=== PATIENT | male | born 1950 | race Caucasian/White ===

== ENCOUNTER 2019-08-16 17:35 | Inpatient (IN) ==
[2019-08-16] MEDS ORDERED: *HR* FentaNYL (PF) 100 MCG/2 ML VIAL IVP ONE (19:55)
[2019-08-16] MEDS ORDERED: *HR* OxyCODONE/APAP 5/325 TABLET PO ONE (20:11)
[2019-08-16 21:01] LABS: Basophils # 0.1 K/mcL (0.0-0.2); Basophils % 0.7 %; Eosinophils # 0.4 K/mcL (0.0-0.6); Eosinophils % 4.1 %; Hematocrit 42.4 % (37.5-50.1); Hemoglobin 14.4 g/dL (12.9-16.9); Immature Granulocytes % 0.4 % (0-4); Lymphocytes # 1.1 K/mcL (0.6-4.6); Lymphocytes % 10.3 %; Mean Corpuscular Hemoglobin 32.6 pg (28.0-33.3); Mean Corpuscular Volume 95.9 fL (83.0-100.0); Mean Platelet Volume 10.8 fL (9.4-12.4); Monocytes % 10.2 %; Neutrophils # 7.6 K/mcL (1.6-8.9); Platelet Count 154 K/mcL (140-400); Red Blood Count 4.42 M/mcL (4.19-5.50); Red Cell Distribution Width 13.1 % (11.5-14.5); Segmented Neutrophils % 74.3 %; White Blood Count 10.2 K/mcL (4.3-11.1)
[2019-08-16 21:15] LABS: INR 1.1
[2019-08-16 21:18] LABS: Activated Partial Thrombo Time 31.5 Seconds (26.0-36.0)
[2019-08-16 21:22] LABS: BUN/Creatinine Ratio 13 (6-26); Blood Urea Nitrogen 10 mg/dL (8-23); Calcium 9.1 mg/dL (8.6-10.3); Carbon Dioxide 27 mEq/L (23-29); Chloride 99 mEq/L (98-107); Glucose 164 mg/dL (70-105); Osmolality,Calculated 283 (280-300); Potassium 4.1 mEq/L (3.5-5.1); Sodium 135 mEq/L (136-145); eGFR For African Americans > 60 (> 60); eGFR For Non-African Americans > 60 (> 60)
[2019-08-16] MEDS ORDERED: *HR* LORazepam 2 MG/ML VIAL IVP PRN ×3 (23:43)
[2019-08-16] MEDS ORDERED: *HR* Promethazine 25 MG/ML VIAL IVP PRN (23:43)
[2019-08-16] MEDS ORDERED: traMADol 50 MG TABLET PO PRN (23:50)
[2019-08-16] MEDS ORDERED: Acetaminophen 325 MG TABLET PO PRN (23:50)
[2019-08-16] MEDS ORDERED: Naloxone 0.4 MG/ML INJ IVP PRN (23:50)
[2019-08-16] MEDS ORDERED: *HR* OxyCODONE Immed Rel 5 MG TABLET PO PRN (23:50)
[2019-08-17 00:51] LABS: Albumin 3.9 g/dL (3.5-5.7); Albumin/Globulin Ratio 2.2 (1.1-2.2); Bilirubin,Direct 0.2 mg/dL (0.0-0.2); Bilirubin,Indirect 0.9 mg/dL (0.0-1.2); Bilirubin,Total 1.1 mg/dL (0.3-1.0); Chol/HDL Ratio 2.2 (0-4.9); Globulin 1.8 g/dL (2.4-3.5); Total Protein 5.7 g/dL (6.4-8.9)
[2019-08-17 02:28] LABS: Hematocrit 38.1 % (37.5-50.1); Mean Corpuscular HGB Conc 34.1 g/dL (31.6-35.5); Mean Corpuscular Hemoglobin 33.2 pg (28.0-33.3); Mean Corpuscular Volume 97.4 fL (83.0-100.0); Platelet Count 138 K/mcL (140-400); Red Blood Count 3.91 M/mcL (4.19-5.50); White Blood Count 7.5 K/mcL (4.3-11.1)
[2019-08-17 02:45] LABS: BUN/Creatinine Ratio 13 (6-26); Blood Urea Nitrogen 11 mg/dL (8-23); Calcium 8.7 mg/dL (8.6-10.3); Carbon Dioxide 27 mEq/L (23-29); Chloride 103 mEq/L (98-107); Glucose 130 mg/dL (70-105); Magnesium 1.9 mg/dL (1.6-2.6); Osmolality,Calculated 285 (280-300); Potassium 3.8 mEq/L (3.5-5.1); Sodium 137 mEq/L (136-145); eGFR For African Americans > 60 (> 60); eGFR For Non-African Americans > 60 (> 60)
[2019-08-17 07:13] LABS: Estimated Average Glucose 117 mg/dl
[2019-08-17] MEDS ORDERED: Thiamine (B-1) 100 MG TABLET PO SCH (09:00)
[2019-08-17] MEDS ORDERED: Folic Acid 1 MG TABLET PO SCH (09:00)
[2019-08-17] MEDS ORDERED: Vitamin B Complex/Vit C/Vit E 1 EACH TABLET PO SCH (09:00)
[2019-08-17] MEDS ORDERED: *HR* LORazepam 0.5 MG TABLET PO PRN (12:11)
[2019-08-17] MEDS: *HR* LORazepam 0.5 MG TABLET PO SCH ×3 (14:31→22:28)
[2019-08-17] MEDS ORDERED: ceFAZolin 2,000 MG in Water for inj. (sterile) 20 ML IVP ONE (17:19)
[2019-08-17] MEDS ORDERED: *HR* Propofol 200 MG/20 ML VIAL IVP ONE (17:19)
[2019-08-17] MEDS ORDERED: Lidocaine -MPF 4% 5 ML AMPUL ONE (17:19)
[2019-08-17] MEDS ORDERED: *HR* FentaNYL (PF) 100 MCG/2 ML VIAL ONE ×2 (17:19→17:46)
[2019-08-17] MEDS ORDERED: Lidocaine HCL 4 ML Topical Solution (Laryng-O-Jet Kit Sterile Pak) TP ONE (17:19)
[2019-08-17] MEDS ORDERED: Dexamethasone 4 MG/ML VIAL ONE (17:19)
[2019-08-17] MEDS ORDERED: Ondansetron 4 MG/2 ML VIAL ONE (17:19)
[2019-08-17] MEDS ORDERED: Lidocaine -MPF 2% 2 ML VIAL ONE (17:20)
[2019-08-17] MEDS ORDERED: *HR* Succinylcholine 200 MG/10 ML VIAL IVP ONE (17:29)
[2019-08-17] MEDS ORDERED: EPHEDrine 50 MG/ML VIAL ONE (17:39)
[2019-08-17] MEDS ORDERED: Acetaminophen IV 1,000 MG/100 ML INFUS..BTL ONE (17:48)
[2019-08-17] MEDS ORDERED: *HR* Promethazine 25 MG/ML VIAL IVP PRN ×3 (18:26→19:20)
[2019-08-17] MEDS ORDERED: Ondansetron 4 MG/2 ML VIAL IVP ONE ×2 (18:26→19:20)
[2019-08-17] MEDS ORDERED: *HR* HYDROmorphone (PF) 1 MG/ML SYRINGE IVP PRN ×2 (18:26→19:20)
[2019-08-17] MEDS ORDERED: *HR* OxyCODONE Immed Rel 5 MG TABLET PO PRN ×3 (18:26→19:20)
[2019-08-17] MEDS ORDERED: Naloxone 0.4 MG/ML INJ IVP PRN (19:20)
[2019-08-17] MEDS ORDERED: *HR* LORazepam 2 MG/ML VIAL IVP PRN ×3 (19:20)
[2019-08-17] MEDS ORDERED: Acetaminophen 325 MG TABLET PO PRN (19:20)
[2019-08-17] MEDS: traMADol 50 MG TABLET PO PRN (22:40)
[2019-08-18 05:42] LABS: Hematocrit 38.2 % (37.5-50.1); Hemoglobin 13.2 g/dL (12.9-16.9); Mean Corpuscular HGB Conc 34.6 g/dL (31.6-35.5); Mean Corpuscular Hemoglobin 33.4 pg (28.0-33.3); Mean Corpuscular Volume 96.7 fL (83.0-100.0); Mean Platelet Volume 11.2 fL (9.4-12.4); Platelet Count 144 K/mcL (140-400); Red Blood Count 3.95 M/mcL (4.19-5.50); Red Cell Distribution Width 12.9 % (11.5-14.5)
[2019-08-18 06:01] LABS: BUN/Creatinine Ratio 12 (6-26); Blood Urea Nitrogen 8 mg/dL (8-23); Calcium 8.9 mg/dL (8.6-10.3); Carbon Dioxide 25 mEq/L (23-29); Chloride 100 mEq/L (98-107); Glucose 174 mg/dL (70-105); Osmolality,Calculated 279 (280-300); Potassium 4.4 mEq/L (3.5-5.1); Sodium 133 mEq/L (136-145); eGFR For African Americans > 60 (> 60); eGFR For Non-African Americans > 60 (> 60)
[2019-08-18] MEDS: traMADol 50 MG TABLET PO PRN ×2 (07:13→18:16)
[2019-08-18] MEDS: *HR* LORazepam 0.5 MG TABLET PO SCH ×4 (08:33→20:05)
[2019-08-18] MEDS: Aspirin Enteric Coated 325 MG Tablet PO SCH (08:34)
[2019-08-18] MEDS: Vitamin B Complex/Vit C/Vit E 1 EACH TABLET PO SCH (08:34)
[2019-08-18] MEDS: Folic Acid 1 MG TABLET PO SCH (08:34)
[2019-08-18] MEDS: Thiamine (B-1) 100 MG TABLET PO SCH (08:34)
[2019-08-18] MEDS ORDERED: Nicotine 21 MG PATCH.TD24 TD SCH (09:00)
[2019-08-19 07:54] LABS: Hematocrit 36.5 % (37.5-50.1); Hemoglobin 12.3 g/dL (12.9-16.9); Mean Corpuscular HGB Conc 33.7 g/dL (31.6-35.5); Mean Corpuscular Hemoglobin 32.8 pg (28.0-33.3); Mean Corpuscular Volume 97.3 fL (83.0-100.0); Mean Platelet Volume 11.3 fL (9.4-12.4); Platelet Count 147 K/mcL (140-400); Red Blood Count 3.75 M/mcL (4.19-5.50); White Blood Count 7.9 K/mcL (4.3-11.1)
[2019-08-19 08:01] LABS: BUN/Creatinine Ratio 12 (6-26); Blood Urea Nitrogen 9 mg/dL (8-23); Calcium 8.7 mg/dL (8.6-10.3); Carbon Dioxide 27 mEq/L (23-29); Chloride 101 mEq/L (98-107); Glucose 99 mg/dL (70-105); Osmolality,Calculated 277 (280-300); Sodium 134 mEq/L (136-145); eGFR For African Americans > 60 (> 60); eGFR For Non-African Americans > 60 (> 60)
[2019-08-19] MEDS: Folic Acid 1 MG TABLET PO SCH (08:48)
[2019-08-19] MEDS: Aspirin Enteric Coated 325 MG Tablet PO SCH (08:48)
[2019-08-19] MEDS: *HR* LORazepam 0.5 MG TABLET PO SCH ×4 (08:48→22:15)
[2019-08-19] MEDS: Vitamin B Complex/Vit C/Vit E 1 EACH TABLET PO SCH (08:48)
[2019-08-19] MEDS: Thiamine (B-1) 100 MG TABLET PO SCH (08:49)
[2019-08-20 02:17] LABS: Basophils # 0.1 K/mcL (0.0-0.2); Eosinophils # 0.6 K/mcL (0.0-0.6); Eosinophils % 8.3 %; Hematocrit 37.1 % (37.5-50.1); Hemoglobin 12.5 g/dL (12.9-16.9); Immature Granulocytes % 0.3 % (0-4); Lymphocytes # 1.4 K/mcL (0.6-4.6); Mean Corpuscular HGB Conc 33.7 g/dL (31.6-35.5); Mean Corpuscular Hemoglobin 33.1 pg (28.0-33.3); Mean Corpuscular Volume 98.1 fL (83.0-100.0); Mean Platelet Volume 11.3 fL (9.4-12.4); Monocytes % 15.1 %; Neutrophils # 3.8 K/mcL (1.6-8.9); Platelet Count 153 K/mcL (140-400); Red Blood Count 3.78 M/mcL (4.19-5.50); Red Cell Distribution Width 12.8 % (11.5-14.5); Segmented Neutrophils % 55.3 %; White Blood Count 6.9 K/mcL (4.3-11.1)
[2019-08-20 02:35] LABS: BUN/Creatinine Ratio 15 (6-26); Blood Urea Nitrogen 10 mg/dL (8-23); Calcium 8.8 mg/dL (8.6-10.3); Carbon Dioxide 27 mEq/L (23-29); Chloride 105 mEq/L (98-107); Glucose 91 mg/dL (70-105); Osmolality,Calculated 283 (280-300); Potassium 4.1 mEq/L (3.5-5.1); Sodium 137 mEq/L (136-145); eGFR For African Americans > 60 (> 60); eGFR For Non-African Americans > 60 (> 60)
[2019-08-20] MEDS: Aspirin Enteric Coated 325 MG Tablet PO SCH (08:21)
[2019-08-20] MEDS: Thiamine (B-1) 100 MG TABLET PO SCH (08:21)
[2019-08-20] MEDS: Folic Acid 1 MG TABLET PO SCH (08:21)
[2019-08-20] MEDS: *HR* LORazepam 0.5 MG TABLET PO SCH ×2 (08:21→13:46)
[2019-08-20] MEDS: Vitamin B Complex/Vit C/Vit E 1 EACH TABLET PO SCH (08:21)
[2019-08-20 10:56] VITALS: BP 176/81
== END 2019-08-20 13:55 | disposition home health service (06) | DRG 482 ==
LOC: EMEROOARM 17:35 → 3NENU 17:35 → SUATTDRO 08-17 00:23
PROVIDERS: ADMIT Internal Medicine; ATTEND Internal Medicine